=== PATIENT | male | born 1975 | race Asian ===

== ENCOUNTER 2017-06-16 12:07 | Emergency (ER) | payer OTHER ==
[~2017-06-16] VITALS: Ht 167.6 cm; Wt 86.4 kg
[2017-06-16 12:57] LABS: GLUCOSE,POINT OF CARE 267 MG/DL (70-110)
[2017-06-16] MEDS ORDERED: CARBAMIDE PEROXIDE 6.5% 15 ML OTIC SOLUTION AU ONE (14:45)
[2017-06-16] MEDS ORDERED: HYDROGEN PEROXIDE 118 ML SOLUTION TP ONE (14:45)
[2017-06-16 16:33] VITALS: BP 134/80
== END 2017-06-16 16:43 | disposition home or self-care (01) ==
LOC: EMS 12:08
DX: H61.23 Impacted cerumen, bilateral (principal); R03.0 Elevated blood-pressure reading, without diagnosis of hypertension
CPT/HCPCS: 82962; 99283